=== PATIENT | female | born 1980 | race American Indian/Alaskan Native ===

== ENCOUNTER 2017-06-12 05:39 | Emergency (ER) | payer BC ==
[2017-06-12 05:52] VITALS: PULSE 86
[2017-06-12] MEDS ORDERED: Tmp-Smz 800 mg-160 mg DS Tab PO STA (06:32)
--- NOTE | 2017-06-12 06:35 | C.PDOC ---
History Of Present Illness pt noticed swelling of the left eyebrow and a small "swelling " above left eyebrow. Denies any trauma, No vision changes. No f/c/n/v Time Seen by Provider: 06/12/17 06:32 Chief Complaint (Nursing): Abnormal Skin Integrity History Per: Patient History/Exam Limitations: no limitations Onset/Duration Of Symptoms: Days Current Symptoms Are (Timing): Still Present Location Of Injury: Right: Head (forehead) Quality Of Symptoms: Swollen Severity: Mild Pain Scale Rating Of: 3 Recent travel outside of the [place]: No Additional History Per: Patient Past Medical History Reviewed: Historical Data, Nursing Documentation, Vital Signs Vital Signs: Last Vital Signs Temp 97.5 F L 06/12/17 05:47 Pulse 86 06/12/17 05:47 Resp 18 06/12/17 05:47 BP 147/96 H 06/12/17 05:47 Pulse Ox 98 06/12/17 05:47 Family History: States: No Known Family Hx - Social History Hx Alcohol Use: Yes Hx Substance Use: No - Immunization History Hx Tetanus Toxoid Vaccination: No Hx Influenza Vaccination: No Hx Pneumococcal Vaccination: No Review Of Systems Constitutional: Negative for: Fever, Chills Eyes: Positive for: Eyelid Inflammation, Redness Cardiovascular: Negative for: Chest Pain Respiratory: Negative for: Shortness of Breath Skin: Positive for: Other (swelling left eyelid, small abscess r forehead) Neurological: Negative for: Weakness Psych: Negative for: Anxiety Physical Exam - Physical Exam Appears: Non-toxic, No Acute Distress Skin: Warm, Other (1x1.5 cm small abscess right forehead/eyebrow) Eye(s): bilateral: PERRL, EOMI, left: Other (edema upper eyelid) Nose: Normal Oral Mucosa: Moist Lymphatic: No Adenopathy Neurological/Psych: Oriented x3, Normal Speech, Normal Cognition Gait: Steady ED Course And Treatment O2 Sat by Pulse Oximetry: 98 Disposition Counseled Patient/Family Regarding: Studies Performed, Diagnosis, Need For Followup, Rx Given - Disposition Referrals: Aiden Mckenzie DO [Primary Care Provider] - Disposition: HOME/ ROUTINE Disposition Time: 06:32 Condition: FAIR Additional Instructions: please return if swelling or redness spreads, or having fever, chills, etc Prescriptions: Doxycycline Hyclate 100 mg PO BID #14 capsule Sulfamethoxazole/Trimethoprim [Bactrim DS 800 mg-160 mg] 1 tab PO BID #14 tab Instructions: Abscess (ED) - Clinical Impression Clinical Impression: Eyelid edema, Abscess of forehead
[2017-06-12] MEDS ORDERED: Tmp-Smz 800 mg-160 mg DS Tab ONE (06:51)
[2017-06-12 07:01] VITALS: BP 144/94; RESP 20; TEMP 97.3; O2SAT 97
== END 2017-06-12 07:01 | disposition home or self-care (01) ==
LOC: C.ER 05:39 → SUPCPDRO 05:39 → C.ER 07:01
DX: H02.844 Edema of left upper eyelid (principal); L02.01 Cutaneous abscess of face